=== PATIENT | female | born 1945 | race Caucasian/White ===

== ENCOUNTER 2020-01-17 09:32 | Outpatient (CLI) | payer MEDICARE | END 2020-01-17 23:59 | disposition home or self-care (01) | LOC: ROC 09:32 | PROVIDERS: ATTEND Radiology Radiation Oncology | DX: C54.1 Malignant neoplasm of endometrium (principal); C55 Malignant neoplasm of uterus, part unspecified | CPT/HCPCS: G0463 ==

== ENCOUNTER 2020-03-09 08:39 | Outpatient (CLI) | payer MEDICARE | END 2020-03-09 23:59 | disposition home or self-care (01) | LOC: ROC 08:39 | PROVIDERS: ATTEND Radiology Radiation Oncology | DX: C54.1 Malignant neoplasm of endometrium (principal) | CPT/HCPCS: G0463; G2012 ==